=== PATIENT | male | born 1965 ===

== ENCOUNTER 2025-02-01 16:05 | Outpatient (REF) | payer BC, SELFPAY ==
[2025-02-01 15:02] LABS: HCT 43.1 % (40.0-50.0); HGB 14.3 g/dL (13.5-17.5); MCH 28.8 pg (27.0-33.0); MCHC 33.2 % (32.0-36.0); MCV 87 fL (80-95); MPV 11.9 fL (8.0-11.0); Platelet Count 230 10^3/uL (130-400); RBC 4.96 10^6/uL (4.36-5.78); RDW 13.4 % (11.8-14.1); RDW-SD 42.3 fL; WBC 5.54 10^3/uL (4.4-10.8)
[2025-02-01 17:03] LABS: ALT 21 U/L (16-63); AST 20 U/L (15-37); Albumin 3.5 g/dL (3.4-5.0); Alkaline Phosphatase 55 U/L (46-116); Anion Gap 7.7 mmol/L (3-11); BUN 18 mg/dL (7-18); Bilirubin, Total 0.6 mg/dL (0.2-1.0); CO2 28.3 mmol/L (21.0-32.0); Calcium 9.6 mg/dL (8.5-10.1); Calculated LDL 164 mg/dL (<100); Chloride 103 mmol/L (98-107); Cholesterol 231 mg/dL (<200); Estimated GFR 97.78 (mL/min/1.73m2); Glucose 105 mg/dL (74-106); HDL Cholesterol 48 mg/dL (>or=40); Potassium 4.3 mmol/L (3.5-5.1); Sodium 139 mmol/L (136-145); Total Protein 7.1 g/dL (6.4-8.2); Triglyceride 97 mg/dL (<150)
[2025-02-01 18:03] LABS: Hemoglobin A1C 5.6 % (<5.7)
[2025-02-02 09:29] LABS: PSA, Screening 0.8 ng/mL (<=4.5)
== END 2025-02-01 16:06 | disposition home or self-care (01) ==
LOC: NCHCN 16:05
PROVIDERS: PCP Physician Assistant; Visit Provider Physician Assistant
DX: K57.90 Diverticulosis of intestine, part unspecified, without perforation or abscess without bleeding (principal); Z13.220 Encounter for screening for lipoid disorders; Z13.1 Encounter for screening for diabetes mellitus; Z12.5 Encounter for screening for malignant neoplasm of prostate
CPT/HCPCS: 80053; 80061; 84153; 85027; 83036